=== PATIENT | female | born 1985 | race Caucasian/White ===

== ENCOUNTER 2018-03-30 15:28 | Outpatient (CLI) | payer BC, SELFPAY ==
[2018-03-30 16:58] LABS: TSH (W/Ref FT4) 20.52 uIU/mL (0.358-3.74)
== END 2018-03-30 15:48 ==
PROVIDERS: PCP Family Medicine; Visit Provider Family Medicine
DX: E03.9 Hypothyroidism, unspecified (principal)
CPT/HCPCS: 36415; 84439; 84443

== ENCOUNTER 2018-09-09 16:21 | Outpatient (CLI) | payer BC, SELFPAY ==
[2018-09-09 19:39] LABS: HCG Qual (Serum) Negative
[2018-09-10 19:13] LABS: Estradiol 36 pg/ml
[2018-09-11 09:46] LABS: FSH 4.6 mIU/ml
[2018-09-11 13:35] LABS: Chlamydia Result Negative; GC Result Negative; Specimen Description URINE
[2018-09-11 14:22] LABS: Measles IgG Antibody Positive
[2018-09-11 15:40] LABS: Antimullerian Hormone 2.7 ng/mL (0.9-9.5)
== END 2018-09-09 16:41 ==
PROVIDERS: PCP Family Medicine; Visit Provider Obstetrics & Gynecology Reproductive Endocrinology
DX: N91.2 Amenorrhea, unspecified (principal); Z11.3 Encounter for screening for infections with a predominantly sexual mode of transmission; Z31.41 Encounter for fertility testing; Z31.69 Encounter for other general counseling and advice on procreation; Z01.84 Encounter for antibody response examination
CPT/HCPCS: 36415; 87491; 87591; 82670; 83001; 83520; 84443; 84703; 86765

== ENCOUNTER 2018-10-09 15:34 | Outpatient (CLI) | payer BC, SELFPAY ==
[2018-10-09 16:17] LABS: HCG Quant, Pregnancy 1 mIU/mL (1-3)
== END 2018-10-09 15:54 ==
PROVIDERS: PCP Family Medicine; Visit Provider Obstetrics & Gynecology Reproductive Endocrinology
DX: Z32.00 Encounter for pregnancy test, result unknown (principal)
CPT/HCPCS: 36415; 84702

== ENCOUNTER 2018-11-17 15:33 | Outpatient (CLI) | payer BC, SELFPAY ==
[2018-11-17 17:03] LABS: HCG Quant, Pregnancy < 1 mIU/mL (1-3)
== END 2018-11-17 15:53 ==
PROVIDERS: PCP Family Medicine; Visit Provider Obstetrics & Gynecology Reproductive Endocrinology
DX: Z32.00 Encounter for pregnancy test, result unknown (principal)
CPT/HCPCS: 36415; 84702

== ENCOUNTER 2018-11-27 16:20 | Outpatient (REF) | payer BC, SELFPAY ==
[2018-11-27 19:08] LABS: HCT 41.3 % (36.0-46.0); HGB 13.2 g/dL (12.0-15.5); Mean Corpuscular Hemoglobin 27.4 pg (27.0-33.0); Mean Corpuscular Volume 85.9 fL (80-95); Mean Platelet Volume 9.7 fL (8.0-11.0); Platelet Count 432 x1000/uL (130-400); RBC 4.81 m/cumm (4.00-5.20); RBC Distribution Width 14.6 % (11.7-14.6); White Blood Cell Count 8.16 k/cumm (4.4-10.8)
[2018-11-27 19:51] LABS: Folate 16.5 ng/mL (8.6-20.0); TSH (W/Ref FT4) 1.08 uIU/mL (0.358-3.74); Vitamin B12 703 pg/mL (193-986)
[2018-11-27 19:57] LABS: ESR 22 MM/HR (0-20)
== END 2018-11-27 16:40 ==
LOC: NCHCN 16:20
PROVIDERS: PCP Family Medicine; Visit Provider Family Medicine
DX: R20.2 Paresthesia of skin (principal)
CPT/HCPCS: 85027; 85652; 82607; 82746; 84443

== ENCOUNTER 2018-12-16 00:52 | Outpatient (CLI) | payer BC, SELFPAY ==
--- NOTE | 2018-12-16 10:39 | DI.MRI_ITS ---
SYMPTOMS/DIAGNOSIS: PARESTHESIA, R20.9 BRAIN MRI: The examination was conducted according to the usual protocol. Review of the multi planar sequences reveals no signal abnormality involving the infra/supratentorial portions of the brain. The ventricles are normal and a normal flow void is noted in the carotid vessels. SUMMARY: Normal Brain MRI.
== END 2018-12-16 01:12 ==
PROVIDERS: PCP Family Medicine; Visit Provider Family Medicine
DX: R20.9 Unspecified disturbances of skin sensation (principal)
CPT/HCPCS: 70551

== ENCOUNTER 2019-03-31 16:50 | Outpatient (REF) | payer BC, SELFPAY ==
[2019-03-31 20:21] LABS: HCG Qual (Serum) Negative
== END 2019-03-31 17:10 ==
LOC: NCHCN 16:50
PROVIDERS: PCP Family Medicine; Visit Provider Family Medicine
DX: N91.2 Amenorrhea, unspecified (principal)
CPT/HCPCS: 84703

== ENCOUNTER 2019-04-01 08:17 | Outpatient (CLI) | payer BC, SELFPAY ==
--- NOTE | 2019-04-01 10:04 | DI.RAD_ITS ---
EXAM: XR SACRUM COCCYX INDICATION: SACRAL BACK PAIN, M54.89, S/P FALLING DOWN STAIRS, DIFFUSE TENDERNESS AND. COMPARISON: No exams were available for comparison TECHNIQUE: 2D digital imaging was performed. FINDINGS: There is no evidence of a fracture involving the sacrum or coccyx.
--- NOTE | 2019-04-01 10:04 | DI.RAD_ITS ---
EXAM: XR LUMBAR SPINE COMPLETE INDICATION: SACRAL BACK PAIN, M54.89, S/P FALLING DOWN STAIRS, DIFFUSE TENDERNESS AND. COMPARISON: No exams were available for comparison TECHNIQUE: 2D digital imaging was performed. FINDINGS: The vertebral bodies appear intact. There may be minimal disc narrowing at L1-2. The pedicle, spino us and transverse processes are unremarkable. The facet joints appear intact with no evidence of spo ndylolysis or spondylolisthesis. The sacrum and sacroiliac joints appear normal. IMPRESSION: There is no evidence of a fracture or subluxation.
--- NOTE | 2019-04-01 10:05 | DI.RAD_ITS ---
EXAM: XR FOOT LT COMPLETE INDICATION: LT FOOT PAIN, M79.672, S/P FALLING DOWN STAIRS, BURNING SENSATION, OVER 5TH. COMPARISON: LEFT FOOT COMPLETE from 11/05/2011 TECHNIQUE: 2D digital imaging was performed. FINDINGS: There is no evidence of a fracture or dislocation.
== END 2019-04-01 08:37 ==
PROVIDERS: PCP Family Medicine; Visit Provider Family Medicine
DX: M79.672 Pain in left foot (principal); R20.8 Other disturbances of skin sensation; M53.3 Sacrococcygeal disorders, not elsewhere classified; M54.5 Low back pain; M51.36 Other intervertebral disc degeneration, lumbar region
CPT/HCPCS: 72110; 72220; 73630

== ENCOUNTER 2019-04-02 09:58 | Outpatient (CLI) | payer BC, SELFPAY ==
[2019-04-02 11:51] LABS: HCG Quant, Pregnancy < 1 mIU/mL (1-3)
[2019-04-02 22:47] LABS: Progesterone 5.5 ng/ml
== END 2019-04-02 10:18 ==
PROVIDERS: PCP Family Medicine; Visit Provider Obstetrics & Gynecology Reproductive Endocrinology
DX: Z32.00 Encounter for pregnancy test, result unknown (principal); Z31.41 Encounter for fertility testing
CPT/HCPCS: 36415; 84144; 84702

== ENCOUNTER 2019-04-14 15:27 | Outpatient (CLI) | payer BC, SELFPAY ==
[2019-04-14 17:51] LABS: HCG Quant, Pregnancy < 1 mIU/mL (1-3)
== END 2019-04-14 15:47 ==
PROVIDERS: PCP Family Medicine; Visit Provider Obstetrics & Gynecology Reproductive Endocrinology
DX: Z32.00 Encounter for pregnancy test, result unknown (principal)
CPT/HCPCS: 36415; 84702

== ENCOUNTER 2019-05-19 08:48 | Outpatient (CLI) | payer BC, SELFPAY ==
[2019-05-19 10:24] LABS: HCG Quant, Pregnancy 1 mIU/mL (1-3)
== END 2019-05-19 09:08 ==
PROVIDERS: PCP Family Medicine; Visit Provider Obstetrics & Gynecology Reproductive Endocrinology
DX: Z32.00 Encounter for pregnancy test, result unknown (principal)
CPT/HCPCS: 36415; 84702